=== PATIENT | female | born 1995 | race Caucasian/White ===

== ENCOUNTER 2017-05-31 13:38 | Emergency (ER) | payer SELFPAY | END 2017-05-31 14:10 | disposition home or self-care (01) | LOC: ERS 13:38 | DX: L03.116 Cellulitis of left lower limb (principal); F17.210 Nicotine dependence, cigarettes, uncomplicated | CPT/HCPCS: 99283 ==

== ENCOUNTER 2017-06-02 18:36 | Emergency (ER) | payer SELFPAY ==
[2017-06-02] MEDS ORDERED: Lidocaine 4% Cream 5 GM TUBE w/ Tegaderm ONE (18:51)
[2017-06-02] MEDS ORDERED: Lidocaine Viscous Sol 2% 15 ml UD Cup ONE (18:51)
[2017-06-02] MEDS ORDERED: Lorazepam 2 MG/ML VIAL ONE (19:50)
== END 2017-06-02 20:15 | disposition home or self-care (01) ==
LOC: ERS 18:36
DX: L02.612 Cutaneous abscess of left foot (principal); F17.210 Nicotine dependence, cigarettes, uncomplicated
CPT/HCPCS: 10060; 96372; J2060

== ENCOUNTER 2019-02-07 02:51 | Emergency (ER) | payer SELFPAY ==
[2019-02-07] MEDS ORDERED: Ketorolac Tromethamine 30 MG/ML VIAL ONE (03:15)
--- NOTE | 2019-02-07 08:01 | RAD ---
XR Ribs Lt>=2 View W/PA CXR HISTORY: Fall with rib injury. COMPARISON: None. FINDINGS: Heart size and mediastinum are within normal limits. The lungs are clear of infiltrates. No pneumothorax is identified. No rib fractures are seen. IMPRESSION: Negative left ribs.
== END 2019-02-07 04:17 | disposition home or self-care (01) ==
LOC: ERS 02:51
DX: S22.32XA Fracture of one rib, left side, initial encounter for closed fracture (principal); F17.210 Nicotine dependence, cigarettes, uncomplicated; W06.XXXA Fall from bed, initial encounter
CPT/HCPCS: 96372; J1885

== ENCOUNTER 2019-02-10 12:40 | Emergency (ER) | payer SELFPAY ==
[2019-02-10] MEDS ORDERED: Ibuprofen 200 MG TAB ONE (13:53)
--- NOTE | 2019-02-10 14:12 | RAD ---
XR Chest Pa Lat STANDARD History: [Injury.] Comparison: Radiographs 3 days prior Findings: Lungs are clear. No pneumothorax or effusion. Cardiac silhouette and mediastinal contours a re within normal limits. Impression: No acute intrathoracic normality.
== END 2019-02-10 15:15 | disposition home or self-care (01) ==
LOC: ERS 12:40
DX: R07.89 Other chest pain (principal); F17.210 Nicotine dependence, cigarettes, uncomplicated
CPT/HCPCS: 71046